=== PATIENT | male | born 1990 | race Caucasian/White ===

== ENCOUNTER 2020-11-29 23:44 | Emergency (ER) | payer OTHER ==
[2020-11-30 00:28] LABS: BASOPHIL 0.7 % (0-2); EOSINOPHIL 1.4 % (0-5); HCT 43.8 % (42.0-52.0); HGB 14.2 g/dl (13.2-18.0); LYMPHOCYTE 34.2 % (15-48); MCH 28.7 pg (25.0-31.0); MCHC 32.4 g/dL (32.0-36.0); MCV 88.5 fL (78.0-100.0); MONOCYTE 8.6 % (0-12); MPV 10.5 fL (6.0-9.5); NEUTROPHIL 54.7 % (41-80); NRBC 0; PLT 213 K/uL (150-400); RBC 4.95 M/uL (4.70-6.00); RDW 12.8 % (11.5-14.0); WBC 5.6 K/uL (4.0-10.5)
[2020-11-30 00:32] LABS: INR 0.98 (0.9-1.2); PROTHROMBIN TIME 12.3 SECONDS (11.4-13.6)
[2020-11-30 00:33] LABS: PTT 29.2 SECONDS (22.2-34.7)
[2020-11-30 00:34] LABS: D-DIMER 0.92 ug/mLFEU (0.00-0.41)
[2020-11-30 00:48] LABS: ALBUMIN 4.1 g/dL (3.4-5.0); BILIRUBIN - TOTAL 0.3 mg/dL (0.2-1.0); BUN/CREAT RATIO (CALC) 10.3 RATIO; CREATININE 1.26 mg/dL (0.67-1.17); GLOBULIN (CALCULATION) 3.5 g/dL; POTASSIUM 3.4 mmol/L (3.5-5.1); TOTAL PROTEIN 7.6 g/dL (6.4-8.2)
== END 2020-11-30 04:49 | disposition home or self-care (01) ==
LOC: FER 23:44
PROVIDERS: Emergency Medicine Emergency Medical Services
DX: J18.9 Pneumonia, unspecified organism (principal); R07.89 Other chest pain; I49.8 Other specified cardiac arrhythmias; Z20.822 Contact with and (suspected) exposure to COVID-19; Z87.09 Personal history of other diseases of the respiratory system; Z98.890 Other specified postprocedural states; Z82.49 Family history of ischemic heart disease and other diseases of the circulatory system
CPT/HCPCS: 36415; 71045; 71275; 80053; 83880; 84484; 85025; 85379; 85610; 85730; 93005; J1885; J2270; J2405; J2930; Q9967; U0002

== ENCOUNTER 2021-09-22 09:36 | Emergency (ER) | payer OTHER ==
[2021-09-22 12:53] LABS: BASOPHIL 0.4 % (0-2); EOSINOPHIL 0.1 % (0-5); HCT 51.3 % (42.0-52.0); LYMPHOCYTE 18.5 % (15-48); MCHC 33.1 g/dL (32.0-36.0); MCV 87.4 fL (78.0-100.0); MONOCYTE 7.7 % (0-12); MPV 10.9 fL (6.0-9.5); NEUTROPHIL 72.9 % (41-80); NRBC 0; PLT 154 K/uL (150-400); RBC 5.87 M/uL (4.70-6.00); RDW 12.5 % (11.5-14.0); WBC 8.1 K/uL (4.0-10.5)
[2021-09-22 13:13] LABS: ALBUMIN 4.6 g/dL (3.4-5.0); BILIRUBIN - TOTAL 0.3 mg/dL (0.2-1.0); BUN/CREAT RATIO (CALC) 12.3 RATIO; CREATININE 1.46 mg/dL (0.67-1.17); GLOBULIN (CALCULATION) 3.5 g/dL; TOTAL PROTEIN 8.1 g/dL (6.4-8.2)
[2021-09-22 14:00] LABS: INFLUENZA A NAA NEGATIVE (NEGATIVE)
[2021-09-22 14:08] LABS: CORONAVIRUS 2019 SARS-COV-2 POSITIVE (NEGATIVE)
[2021-09-22] MEDS ORDERED: PHENERGAN25 M1 PO (14:38)
[2021-09-22] MEDS ORDERED: ONDANSETRON ODT4 MG PO (14:38)
== END 2021-09-22 14:50 | disposition home or self-care (01) ==
LOC: FER 09:36
PROVIDERS: Internal Medicine
DX: U07.1 COVID-19 (principal); A08.4 Viral intestinal infection, unspecified; N17.9 Acute kidney failure, unspecified
CPT/HCPCS: 36415; 80053; 83690; 85025; J2405; J2550; J7120; U0002